=== PATIENT | female | born 1965 | race Caucasian/White ===

== ENCOUNTER 2021-09-17 13:49 | Emergency (ER) | payer OTHER ==
[~2021-09-17] VITALS: Ht 162.6 cm; Wt 79.8 kg
[2021-09-17 13:53] VITALS: BP 137/77
[2021-09-17 16:51] VITALS: BP 137/77
--- NOTE | 2021-09-17 16:52 | NUR ---
NO NURSING INTERVENTIONS RENDERED.
--- NOTE | 2021-09-17 16:53 | NUR ---
Patient discharged with v/s stable. Written and verbal after care instructions given and explained. Patient verbalized understanding. Ambulatory with steady gait. All questions addressed prior to discharge. Advised to follow up with PMD. PT GIVEN COPY OF XRAY RESULTS AND WORK NOTE.
== END 2021-09-17 16:51 | disposition home or self-care (01) ==
LOC: MED 13:49
DX: R07.81 Pleurodynia (principal); M25.511 Pain in right shoulder; I10 Essential (primary) hypertension
CPT/HCPCS: 71111; 73030; 99284